=== PATIENT | female | born 2000 | race Caucasian/White ===

== ENCOUNTER 2022-05-08 12:45 | Inpatient (IN) | payer OTHER ==
[2022-05-08 14:55] VITALS: BMI 27.4
[2022-05-08 15:08] LABS: BASO % 0.3 % (0-2.0); EOS % 0.4 % (0-4.5); HEMATOCRIT 38.2 % (32.4-45.2); HEMOGLOBIN 13.6 GM/dL (10.7-15.3); LYMPH % 19.2 % (8-40); MCH 34.8 pg (25.7-33.7); MCHC 35.5 g/dl (32.0-36.0); MEAN CELL VOLUME 98.1 fl (80-96); MEAN PLT VOLUME 7.8 fl (7.5-11.1); MONO % 6.4 % (3.8-10.2); NEUT % 73.7 % (42.8-82.8); PLATELET COUNT 183 10^3/uL (134-434); RDW 13.3 % (11.6-15.6); WHITE BLOOD COUNT 10.6 K/mm3 (4.0-10.0)
[2022-05-08 15:21] LABS: INR 1.01 (0.83-1.09); PROTHROMBIN TIME (PATIENT) 11.6 SEC (9.7-13.0)
[2022-05-08 15:24] LABS: ACTIVATED PTT 25.7 SECONDS (25.2-36.5)
[2022-05-08 15:33] LABS: CALCIUM 8.6 mg/dL (8.5-10.1)
[2022-05-08 15:34] LABS: BLOOD UREA NITROGEN 5.8 mg/dL (7-18)
[2022-05-08 15:37] LABS: CREATININE 0.5 mg/dL (0.55-1.3)
[2022-05-08] MEDS: ELECTROLYTE-148 SOLN 1,000 ML IV SCH (19:00)
[2022-05-08] MEDS ORDERED: OXYTOCIN 30 UNITS in 0.9% NS 30 UNIT/500 ML INFUS.BAG IVPB ONE (23:40)
[2022-05-08] MEDS ORDERED: KETOROLAC TROMETHAMINE 30 MG/1 ML VIAL ONE (23:44)
[2022-05-08] MEDS ORDERED: ePHEDrine SULFATE 50 MG/1 ML AMPULE ONE (23:44)
[2022-05-08] MEDS ORDERED: morphine SULFATE/PF 1 MG/2 ML (2cc Syringe - QUVA) ONE (23:44)
[2022-05-08] MEDS ORDERED: PHENYLEPHRINE HCL 10 MG/1 ML SINGLE DOSE VIAL ONE (23:44)
[2022-05-08] MEDS ORDERED: ONDANSETRON 4 MG/2 ML VIAL ONE (23:44)
[2022-05-08] MEDS ORDERED: SODIUM CHLORIDE 0.9% P/F 10 ML VIAL IJ ONE (23:44)
[2022-05-09] MEDS ORDERED: LIDOCAINE HCL 2% JELLY (5 ML/TUBE) ONE (00:02)
[2022-05-09] MEDS ORDERED: CLINDAMYCIN PHOSPHATE 900 MG/6 ML VIAL IVPB ONE (00:12)
[2022-05-09] MEDS ORDERED: ACETAMINOPHEN 325 MG TABLET (FP) PO PRN (00:56)
[2022-05-09] MEDS ORDERED: IBUPROFEN 800 MG/8 ML IJ IVPB PRN (00:56)
[2022-05-09] MEDS: OXYTOCIN 20 UNITS in 0.9% NS 20 UNIT/1,000 ML INFUS.BAG IV SCH ×2 (01:00→06:00)
[2022-05-09] MEDS ORDERED: ONDANSETRON 4 MG/2 ML VIAL IVPUSH PRN (01:12)
[2022-05-09] MEDS ORDERED: ACETAMINOPHEN 1000 MG/100 ML BAG IVPB PRN (01:13)
[2022-05-09] MEDS ORDERED: OXYTOCIN 20 UNITS in 0.9% NS 20 UNIT/1,000 ML INFUS.BAG IV ONE (01:14)
[2022-05-09] MEDS ORDERED: METHYLERGONOVINE MALEATE 0.2 MG/1 ML AMP IM ONE (01:30)
[2022-05-09 03:26] LABS: CORD BASE EXCESS -0.3 mmol/L (0-2); CORD HCO3 25.6 mmHg (20-29); CORD PCO2 45.7 mmHg (30-78); CORD pH 7.367 (7.14-7.44)
[2022-05-09] MEDS: METHYLERGONOVINE MALEATE 0.2 MG TABLET (FP) PO SCH ×5 (05:59→21:43)
[2022-05-09 09:39] LABS: BASO % 0.3 % (0-2.0); EOS % 0.1 % (0-4.5); LYMPH % 14.2 % (8-40); MCH 33.9 pg (25.7-33.7); MCHC 34.4 g/dl (32.0-36.0); MEAN CELL VOLUME 98.5 fl (80-96); MEAN PLT VOLUME 7.8 fl (7.5-11.1); MONO % 6.9 % (3.8-10.2); NEUT % 78.5 % (42.8-82.8); PLATELET COUNT 162 10^3/uL (134-434); RBC 3.55 M/mm3 (3.60-5.2); RDW 13.3 % (11.6-15.6); WHITE BLOOD COUNT 12.3 K/mm3 (4.0-10.0)
[2022-05-09] MEDS ORDERED: oxyCODONE HCL 5 MG TABLET PO PRN (12:56)
[2022-05-09] MEDS: IBUPROFEN 600 MG TABLET (FP) PO PRN (18:06)
[2022-05-09] MEDS: ELECTROLYTE-148 SOLN 1,000 ML IV SCH (19:45)
[2022-05-10] MEDS ORDERED: BISACODYL 10 MG SUPP.RECT RC PRN (00:56)
[2022-05-10] MEDS: OXYTOCIN 20 UNITS in 0.9% NS 20 UNIT/1,000 ML INFUS.BAG IV SCH (06:20)
[2022-05-10] MEDS: IBUPROFEN 600 MG TABLET (FP) PO PRN ×3 (06:20→19:45)
[2022-05-10] MEDS: SIMETHICONE 80 MG TAB.CHEW (FP) PO PRN ×3 (06:20→19:45)
[2022-05-10 09:09] LABS: BASO % 0.3 % (0-2.0); EOS % 0.9 % (0-4.5); HEMATOCRIT 35.5 % (32.4-45.2); HEMOGLOBIN 12.6 GM/dL (10.7-15.3); LYMPH % 14.4 % (8-40); MCH 35.2 pg (25.7-33.7); MCHC 35.4 g/dl (32.0-36.0); MEAN CELL VOLUME 99.3 fl (80-96); MEAN PLT VOLUME 7.5 fl (7.5-11.1); MONO % 5.5 % (3.8-10.2); NEUT % 78.9 % (42.8-82.8); PLATELET COUNT 177 10^3/uL (134-434); RBC 3.58 M/mm3 (3.60-5.2); RDW 13.2 % (11.6-15.6)
[2022-05-11] MEDS: IBUPROFEN 600 MG TABLET (FP) PO PRN ×2 (08:27→19:42)
[2022-05-11] MEDS: SIMETHICONE 80 MG TAB.CHEW (FP) PO PRN (08:28)
[2022-05-11 22:51] VITALS: RESP 18
[2022-05-12] MEDS: IBUPROFEN 600 MG TABLET (FP) PO PRN (02:28)
[2022-05-12 08:52] VITALS: BP 116/77; PULSE 85; TEMP 99
[2022-05-12 09:17] LABS: BASO % 0.5 % (0-2.0); EOS % 2.5 % (0-4.5); HEMATOCRIT 32.8 % (32.4-45.2); HEMOGLOBIN 11.8 GM/dL (10.7-15.3); LYMPH % 14.6 % (8-40); MCH 35.6 pg (25.7-33.7); MCHC 35.9 g/dl (32.0-36.0); MEAN CELL VOLUME 99.1 fl (80-96); MEAN PLT VOLUME 7.4 fl (7.5-11.1); MONO % 4.4 % (3.8-10.2); PLATELET COUNT 182 10^3/uL (134-434); RBC 3.31 M/mm3 (3.60-5.2); RDW 12.8 % (11.6-15.6); WHITE BLOOD COUNT 7.6 K/mm3 (4.0-10.0)
== END 2022-05-12 12:50 | disposition home or self-care (01) | DRG 540 ==
LOC: JDEL 12:45 → JLDR 13:32 → J3W 05-09 03:00
PROVIDERS: ADMIT Student in an Organized Health Care Education/Training Program; ATTEND Student in an Organized Health Care Education/Training Program
PROC: 10D00Z1 Extraction of Products of Conception, Low, Open Approach (ICD-10-PCS; principal; 2022-05-09)
DX: O42.02 Full-term premature rupture of membranes, onset of labor within 24 hours of rupture (principal); O62.0 Primary inadequate contractions; Z3A.39 39 weeks gestation of pregnancy; Z37.0 Single live birth
CPT/HCPCS: 36415; 36600; 59025; 80048; 82803; 85025; 85610; 85730; 86780; 86850; 86900; 86901; 88307-TC; C9803-CS; U0003; U0005

== ENCOUNTER 2023-02-03 14:20 | Emergency (ER) | payer OTHER ==
[2023-02-03 14:30] VITALS: TEMP 99.1; BMI 21.9
[2023-02-03] MEDS ORDERED: ONDANSETRON 4 MG/2 ML VIAL IVPUSH ONE (15:13)
[2023-02-03] MEDS ORDERED: FAMOTIDINE 20 MG/50 ML IVPB 20 MG/50 ML MG IVPB ONE ×2 (15:13→15:34)
[2023-02-03] MEDS ORDERED: ACETAMINOPHEN 1000 MG/100 ML BAG IVPB ONE (15:13)
[2023-02-03] MEDS ORDERED: ONDANSETRON 4 MG/2 ML VIAL ONE (15:34)
[2023-02-03] MEDS ORDERED: ACETAMINOPHEN INJECTION 100 ML IVPB ONE (15:34)
[2023-02-03 16:04] LABS: BASO % 0.1 % (0-2.0); EOS % 0.5 % (0-4.5); HEMATOCRIT 40.3 % (32.4-45.2); LYMPH % 8.1 % (8-40); MCH 32.2 pg (25.7-33.7); MCHC 34.8 g/dl (32.0-36.0); MEAN CELL VOLUME 92.5 fl (80-96); MEAN PLT VOLUME 8.7 fl (7.5-11.1); MONO % 3.2 % (3.8-10.2); NEUT % 88.1 % (42.8-82.8); PLATELET COUNT 193 10^3/uL (134-434); RBC 4.36 M/mm3 (3.60-5.2); RDW 12.1 % (11.6-15.6); WHITE BLOOD COUNT 6.7 K/mm3 (4.0-10.0)
[2023-02-03 16:10] LABS: URINE APPEARANCE CLEAR; URINE BILIRUBIN NEGATIVE (NEGATIVE); URINE COLOR YELLOW; URINE GLUCOSE (UA) NEGATIVE (NEGATIVE); URINE KETONE TRACE (NEGATIVE); URINE LEUK ESTERASE NEGATIVE (NEGATIVE); URINE NITRITE NEGATIVE (NEGATIVE); URINE PROTEIN NEGATIVE (NEGATIVE); URINE UROBILINOGEN 0.2 mg/dL (0.2-1.0)
[2023-02-03 16:19] LABS: POTASSIUM 3.9 mmol/L (3.5-5.1)
[2023-02-03] MEDS ORDERED: SODIUM CHLORIDE 1,000 ML IV STA (16:19)
[2023-02-03 16:22] LABS: ALBUMIN 3.9 g/dl (3.4-5.0); BLOOD UREA NITROGEN 10.8 mg/dL (7-18)
[2023-02-03 16:25] LABS: CREATININE 0.6 mg/dL (0.55-1.3)
[2023-02-03 16:26] LABS: BILIRUBIN,TOTAL 0.5 mg/dL (0.2-1)
[2023-02-03 16:27] LABS: TOT PROT 7.4 g/dl (6.4-8.2)
[2023-02-03 16:47] LABS: HCG,QUALITATIVE URINE Negative
[2023-02-03] MEDS ORDERED: METOCLOPRAMIDE HCL INJECTION 10 MG/2 ML VIAL IVPUSH ONE (17:08)
[2023-02-03] MEDS ORDERED: METOCLOPRAMIDE HCL INJECTION 10 MG/2 ML VIAL ONE (17:18)
[2023-02-03 17:51] VITALS: BP 115/63; PULSE 87; RESP 17
== END 2023-02-03 21:18 | disposition home or self-care (01) ==
LOC: JER 14:20
PROC: 3E033GC Introduction of Other Therapeutic Substance into Peripheral Vein, Percutaneous Approach (ICD-10-PCS; principal; 2023-02-03)
PROC: 3E033GC Introduction of Other Therapeutic Substance into Peripheral Vein, Percutaneous Approach (ICD-10-PCS; 2023-02-03)
PROC: 3E033GC Introduction of Other Therapeutic Substance into Peripheral Vein, Percutaneous Approach (ICD-10-PCS; 2023-02-03)
PROC: 3E033NZ Introduction of Analgesics, Hypnotics, Sedatives into Peripheral Vein, Percutaneous Approach (ICD-10-PCS; 2023-02-03)
PROC: 3E0337Z Introduction of Electrolytic and Water Balance Substance into Peripheral Vein, Percutaneous Approach (ICD-10-PCS; 2023-02-03)
DX: R11.2 Nausea with vomiting, unspecified (principal); R10.84 Generalized abdominal pain; R19.7 Diarrhea, unspecified; Z20.822 Contact with and (suspected) exposure to COVID-19
CPT/HCPCS: 0241U-QW; 36415; 74176-TC; 80053; 81003; 83690; 84703; 85025; 87086; 99284-25

== ENCOUNTER 2023-10-05 10:12 | Emergency (ER) | payer OTHER ==
[2023-10-05 10:23] VITALS: BP 121/77; PULSE 74; RESP 18; TEMP 98.2; BMI 21.2
[2023-10-05] MEDS ORDERED: MAG HYDROX/AL HYDROX/SIMETH 30 ML UNIT-DOSE CUP ONE (11:13)
[2023-10-05] MEDS ORDERED: FAMOTIDINE 20 MG/50 ML IVPB 20 MG/50 ML MG IVPB ONE (11:13)
[2023-10-05] MEDS: MAG HYDROX/AL HYDROX/SIMETH 30 ML UNIT-DOSE CUP PO ONE (11:25)
[2023-10-05] MEDS: FAMOTIDINE 20 MG/50 ML IVPB 20 MG/50 ML MG IVPB ONE (11:25)
[2023-10-05 11:36] LABS: BASO % 0.4 % (0-2.0); EOS % 0.1 % (0-4.5); HEMATOCRIT 41.5 % (32.4-45.2); HEMOGLOBIN 14.5 GM/dL (10.7-15.3); LYMPH % 24.7 % (8-40); MCH 33.4 pg (25.7-33.7); MCHC 35.1 g/dl (32.0-36.0); MEAN CELL VOLUME 95.4 fl (80-96); MEAN PLT VOLUME 8.4 fl (7.5-11.1); MONO % 5.5 % (3.8-10.2); NEUT % 69.3 % (42.8-82.8); PLATELET COUNT 222 10^3/uL (134-434); RBC 4.35 M/mm3 (3.60-5.2); RDW 12.3 % (11.6-15.6); WHITE BLOOD COUNT 6.1 K/mm3 (4.0-10.0)
[2023-10-05 12:12] LABS: POTASSIUM 4.1 mmol/L (3.5-5.1)
[2023-10-05 12:14] LABS: CALCIUM 9.8 mg/dL (8.5-10.1)
[2023-10-05 12:15] LABS: ALBUMIN 4.1 g/dl (3.4-5.0); BLOOD UREA NITROGEN 6.2 mg/dL (7-18)
[2023-10-05 12:18] LABS: CREATININE 0.6 mg/dL (0.55-1.3)
[2023-10-05 12:19] LABS: BILIRUBIN,TOTAL 0.6 mg/dL (0.2-1); TOT PROT 7.6 g/dl (6.4-8.2)
[2023-10-05] MEDS ORDERED: ACETAMINOPHEN 1000 MG/100 ML BAG IVPB ONE (15:17)
[2023-10-05] MEDS ORDERED: ACETAMINOPHEN INJECTION 100 ML IVPB ONE (16:39)
== END 2023-10-05 16:41 | disposition left against medical advice (07) ==
LOC: JER 10:12
PROC: 3E033GC Introduction of Other Therapeutic Substance into Peripheral Vein, Percutaneous Approach (ICD-10-PCS; principal; 2023-10-05)
DX: R10.13 Epigastric pain (principal); R10.12 Left upper quadrant pain; R11.0 Nausea
CPT/HCPCS: 36415; 76705-TC; 80053; 83690; 85025; 93005; 93010; 99285-25

== ENCOUNTER 2023-10-06 11:06 | Emergency (ER) | payer OTHER ==
[2023-10-06 11:18] VITALS: BP 107/68; PULSE 90; RESP 20; TEMP 98; BMI 21.2
[2023-10-06] MEDS ORDERED: ACETAMINOPHEN INJECTION 100 ML IVPB ONE (12:24)
[2023-10-06] MEDS ORDERED: METOCLOPRAMIDE HCL INJECTION 10 MG/2 ML VIAL ONE (12:24)
[2023-10-06] MEDS ORDERED: FAMOTIDINE 20 MG/50 ML IVPB 20 MG/50 ML MG IVPB ONE (12:25)
[2023-10-06] MEDS ORDERED: KETOROLAC TROMETHAMINE 30 MG/1 ML VIAL ONE (12:25)
[2023-10-06] MEDS: KETOROLAC TROMETHAMINE 30 MG/1 ML VIAL IVPUSH ONE (12:41)
[2023-10-06] MEDS: FAMOTIDINE 20 MG/50 ML IVPB 20 MG/50 ML MG IVPB ONE (12:41)
[2023-10-06] MEDS: METOCLOPRAMIDE HCL INJECTION 10 MG/2 ML VIAL IVPUSH ONE (12:42)
[2023-10-06] MEDS: ACETAMINOPHEN 1000 MG/100 ML BAG IVPB ONE (12:45)
[2023-10-06] MEDS: SODIUM CHLORIDE 0.9% 500 ML INFUS.BAG IV ONE (12:45)
[2023-10-06 12:49] LABS: BASO % 0.7 % (0-2.0); EOS % 0.5 % (0-4.5); HEMATOCRIT 42.3 % (32.4-45.2); LYMPH % 33.7 % (8-40); MCH 33.4 pg (25.7-33.7); MCHC 35.5 g/dl (32.0-36.0); MEAN CELL VOLUME 94.1 fl (80-96); MEAN PLT VOLUME 8.4 fl (7.5-11.1); MONO % 6.8 % (3.8-10.2); NEUT % 58.3 % (42.8-82.8); PLATELET COUNT 236 10^3/uL (134-434); RBC 4.49 M/mm3 (3.60-5.2); RDW 12.4 % (11.6-15.6); WHITE BLOOD COUNT 5.9 K/mm3 (4.0-10.0)
[2023-10-06 13:05] LABS: POTASSIUM 4.2 mmol/L (3.5-5.1)
[2023-10-06 13:07] LABS: ALBUMIN 4.2 g/dl (3.4-5.0); CALCIUM 10.3 mg/dL (8.5-10.1)
[2023-10-06 13:08] LABS: BLOOD UREA NITROGEN 6.4 mg/dL (7-18)
[2023-10-06 13:10] LABS: CREATININE 0.7 mg/dL (0.55-1.3)
[2023-10-06 13:12] LABS: BILIRUBIN,TOTAL 0.6 mg/dL (0.2-1)
[2023-10-06] MEDS ORDERED: MAG HYDROX/AL HYDROX/SIMETH 30 ML UNIT-DOSE CUP ONE (15:51)
[2023-10-06] MEDS: LIDOCAINE VISCOUS 2% ORAL/TOP 15 ML UNIT-DOSE CUP MM ONE (15:53)
[2023-10-06] MEDS: MAG HYDROX/AL HYDROX/SIMETH 30 ML UNIT-DOSE CUP PO ONE (15:53)
[2023-10-06 17:57] LABS: EPI CELLS 29 /uL (0-25.1); HYALINE CASTS 2 /uL (0-3.1); PH,URINE 6.5 (5.0-8.0); URINE APPEARANCE CLEAR; URINE BACTERIA 223 /uL (0-1359); URINE BILIRUBIN NEGATIVE (NEGATIVE); URINE COLOR YELLOW; URINE GLUCOSE (UA) NEGATIVE (NEGATIVE); URINE KETONE NEGATIVE (NEGATIVE); URINE LEUK ESTERASE NEGATIVE (NEGATIVE); URINE NITRITE NEGATIVE (NEGATIVE); URINE PROTEIN NEGATIVE (NEGATIVE); URINE RBC 18 /uL (0-23.9); URINE UROBILINOGEN 0.2 mg/dL (0.2-1.0)
== END 2023-10-06 17:47 | disposition home or self-care (01) ==
LOC: JER 11:06
PROC: 3E033GC Introduction of Other Therapeutic Substance into Peripheral Vein, Percutaneous Approach (ICD-10-PCS; principal; 2023-10-06)
PROC: 3E030NZ Introduction of Analgesics, Hypnotics, Sedatives into Peripheral Vein, Open Approach (ICD-10-PCS; 2023-10-06)
PROC: 3E0303Z Introduction of Anti-inflammatory into Peripheral Vein, Open Approach (ICD-10-PCS; 2023-10-06)
PROC: 3E030GC Introduction of Other Therapeutic Substance into Peripheral Vein, Open Approach (ICD-10-PCS; 2023-10-06)
DX: R10.13 Epigastric pain (principal); R11.0 Nausea; R50.9 Fever, unspecified; R63.0 Anorexia; K29.70 Gastritis, unspecified, without bleeding
CPT/HCPCS: 36415; 74177-TC; 80053; 81003; 83690; 84703; 85025; 87086; 99285-25; J0131; Q9967

== ENCOUNTER 2023-10-30 10:23 | Day surgery (SDC) | payer OTHER ==
[2023-10-23 15:57] VITALS: BMI 22.1
[2023-10-30 13:26] VITALS: RESP 19; TEMP 98
[2023-10-30 13:28] VITALS: BP 108/69; PULSE 70
== END 2023-10-30 13:10 | disposition home or self-care (01) ==
LOC: FASU-ENDO 10:23
PROVIDERS: ATTEND Internal Medicine Gastroenterology
PROC: 0DB68ZX Excision of Stomach, Via Natural or Artificial Opening Endoscopic, Diagnostic (ICD-10-PCS; 2023-10-30)
PROC: 0DB48ZX Excision of Esophagogastric Junction, Via Natural or Artificial Opening Endoscopic, Diagnostic (ICD-10-PCS; 2023-10-30)
PROC: 0DB98ZX Excision of Duodenum, Via Natural or Artificial Opening Endoscopic, Diagnostic (ICD-10-PCS; principal; 2023-10-30 12:01)
DX: K29.50 Unspecified chronic gastritis without bleeding (principal); K20.90 Esophagitis, unspecified without bleeding; R10.13 Epigastric pain
CPT/HCPCS: 81025; 88305-TC; 88342-TC

== ENCOUNTER 2024-05-14 14:50 | Emergency (ER) | payer OTHER ==
[2024-05-14 15:09] VITALS: RESP 18; TEMP 98.4; BMI 21.8
[2024-05-14 18:49] LABS: BASO % 0.6 % (0-2.0); EOS % 0.9 % (0-4.5); HEMATOCRIT 42.4 % (32.4-45.2); HEMOGLOBIN 14.5 GM/dL (10.7-15.3); LYMPH % 35.2 % (8-40); MCH 32.3 pg (25.7-33.7); MCHC 34.1 g/dl (32.0-36.0); MEAN CELL VOLUME 94.5 fl (80-96); MEAN PLT VOLUME 8.5 fl (7.5-11.1); MONO % 5.6 % (3.8-10.2); NEUT % 57.7 % (42.8-82.8); PLATELET COUNT 237 10^3/uL (134-434); RBC 4.48 M/mm3 (3.60-5.2); WHITE BLOOD COUNT 5.5 K/mm3 (4.0-10.0)
[2024-05-14 18:54] LABS: HCG,QUALITATIVE URINE Negative
[2024-05-14 19:21] LABS: POTASSIUM 4.6 mmol/L (3.5-5.1)
[2024-05-14 19:23] LABS: ALBUMIN 4.3 g/dl (3.4-5.0); BLOOD UREA NITROGEN 7.2 mg/dL (7-18); CALCIUM 11.3 mg/dL (8.5-10.1); EPI CELLS 12 /uL (0-25.1); HYALINE CASTS 1 /uL (0-3.1); PH,URINE 6.5 (5.0-8.0); URINE APPEARANCE CLEAR; URINE BACTERIA 210 /uL (0-1359); URINE BILIRUBIN NEGATIVE (NEGATIVE); URINE COLOR YELLOW; URINE GLUCOSE (UA) NEGATIVE (NEGATIVE); URINE KETONE NEGATIVE (NEGATIVE); URINE LEUK ESTERASE NEGATIVE (NEGATIVE); URINE NITRITE NEGATIVE (NEGATIVE); URINE PROTEIN TRACE (NEGATIVE); URINE RBC 27 /uL (0-23.9); URINE UROBILINOGEN 0.2 mg/dL (0.2-1.0); URINE WBC 14 /uL (0-25.8)
[2024-05-14 19:26] LABS: CREATININE 0.6 mg/dL (0.55-1.3)
[2024-05-14 19:28] LABS: BILIRUBIN,TOTAL 0.5 mg/dL (0.2-1)
[2024-05-14 20:37] VITALS: BP 100/64; PULSE 74
== END 2024-05-14 20:47 | disposition home or self-care (01) ==
LOC: JER 14:50
DX: N92.0 Excessive and frequent menstruation with regular cycle (principal); M54.50 Low back pain, unspecified; R10.30 Lower abdominal pain, unspecified
CPT/HCPCS: 36415; 76830-TC; 80053; 81003; 84703; 85025; 86850; 86900; 86901; 87086; 99284-25

== ENCOUNTER 2024-11-27 13:08 | Emergency (ER) | payer OTHER ==
[2024-11-27 13:28] VITALS: RESP 18; BMI 22.9
[2024-11-27] MEDS ORDERED: ACETAMINOPHEN INJECTION 100 ML ONE (14:40)
[2024-11-27] MEDS ORDERED: FAMOTIDINE 20 MG/50 ML IVPB 20 MG/50 ML MG IVPB ONE (14:41)
[2024-11-27] MEDS ORDERED: ONDANSETRON 4 MG/2 ML VIAL ONE (14:41)
[2024-11-27] MEDS: SODIUM CHLORIDE 1,000 ML IV STA (14:50)
[2024-11-27] MEDS: ONDANSETRON 4 MG/2 ML VIAL IVPUSH ONE (14:51)
[2024-11-27] MEDS: ACETAMINOPHEN 1000 MG/100 ML BAG IVPB ONE (14:51)
[2024-11-27] MEDS: FAMOTIDINE 20 MG/50 ML IVPB 20 MG/50 ML MG IVPB ONE (14:51)
[2024-11-27 15:01] LABS: HEMOGLOBIN 16.3 g/dL (11.2-15.7); MEAN CELL VOLUME 94.9 fl (79.4-94.8); MEAN PLT VOLUME 10.2 fl (9.4-12.3); PLATELET COUNT 236 x10^3/uL (182-369); RDW 11.5 % (12.1-16.5)
[2024-11-27 15:04] LABS: PH,URINE 5.5 (5.0-8.0); URINE APPEARANCE Clear; URINE BILIRUBIN Negative (NEGATIVE); URINE COLOR Yellow; URINE GLUCOSE (UA) Negative (NEGATIVE); URINE KETONE Negative (NEGATIVE); URINE LEUK ESTERASE Negative (NEGATIVE); URINE NITRITE Negative (NEGATIVE); URINE PROTEIN Negative (NEGATIVE); URINE UROBILINOGEN 0.2 mg/dL (0.2-1.0)
[2024-11-27 15:16] LABS: HCG,QUALITATIVE URINE Negative
[2024-11-27 15:36] LABS: POTASSIUM 4.1 mmol/L (3.5-5.1)
[2024-11-27 15:40] LABS: CALCIUM 9.3 mg/dL (8.5-10.1)
[2024-11-27 15:41] LABS: BLOOD UREA NITROGEN 11.1 mg/dL (7-18)
[2024-11-27 15:44] LABS: CREATININE 0.7 mg/dL (0.55-1.3)
[2024-11-27 15:46] LABS: BILIRUBIN,TOTAL 0.6 mg/dL (0.2-1); TOT PROT 8.1 g/dl (6.4-8.2)
[2024-11-27] MEDS ORDERED: KETOROLAC TROMETHAMINE 30 MG/1 ML VIAL ONE (15:57)
[2024-11-27] MEDS: KETOROLAC TROMETHAMINE 30 MG/1 ML VIAL IVPUSH ONE (16:10)
[2024-11-27 16:42] VITALS: BP 107/58; PULSE 94; TEMP 98.3
[2024-11-27] MEDS ORDERED: METOCLOPRAMIDE HCL INJECTION 10 MG/2 ML VIAL ONE (16:44)
[2024-11-27] MEDS: METOCLOPRAMIDE HCL INJECTION 10 MG/2 ML VIAL IVPUSH ONE (16:50)
[2024-11-27 20:28] LABS: HIV INTERPRETATION NEGATIVE (NEGATIVE)
[2024-11-27 20:29] LABS: HCV DIAGNOSTIC IN-HOUSE W/RFLX NON-REACTIVE (NONREACTIVE)
== END 2024-11-27 17:26 | disposition home or self-care (01) ==
LOC: JER 13:08
PROC: 3E033GC Introduction of Other Therapeutic Substance into Peripheral Vein, Percutaneous Approach (ICD-10-PCS; principal; 2024-11-27)
PROC: 3E033NZ Introduction of Analgesics, Hypnotics, Sedatives into Peripheral Vein, Percutaneous Approach (ICD-10-PCS; 2024-11-27)
PROC: 3E0333Z Introduction of Anti-inflammatory into Peripheral Vein, Percutaneous Approach (ICD-10-PCS; 2024-11-27)
PROC: 3E033GC Introduction of Other Therapeutic Substance into Peripheral Vein, Percutaneous Approach (ICD-10-PCS; 2024-11-27)
PROC: 3E033GC Introduction of Other Therapeutic Substance into Peripheral Vein, Percutaneous Approach (ICD-10-PCS; 2024-11-27)
PROC: 3E0337Z Introduction of Electrolytic and Water Balance Substance into Peripheral Vein, Percutaneous Approach (ICD-10-PCS; 2024-11-27)
DX: K52.9 Noninfective gastroenteritis and colitis, unspecified (principal); K29.70 Gastritis, unspecified, without bleeding; R11.2 Nausea with vomiting, unspecified
CPT/HCPCS: 0241U-QW; 36415; 80053; 81003; 83690; 84703; 85025; 86803; 87086; 87389; 99284-25; J0131